=== PATIENT | male | born 1945 | race Caucasian/White ===

== ENCOUNTER 2022-11-10 07:53 | Day surgery (SDC) | payer BC ==
[2022-11-09 11:25] VITALS: BMI 43.9
[~2022-11-10 07:53] MED LIST: Fluorouracil 100 MG, Enoxaparin 25 MG, EPINEPHrine 0.3 MG in Ophthalmic Irrigation Solu... IRR SCH; Midazolam HCl 2 mg/2 ml Vial ONE; fentaNYL 50 mcg/mL 1 mL Vial ONE
[2022-11-10] MEDS ORDERED: Phenylephrine 2.5% Ophth Soln 5 ML BOT ONE (08:39)
[2022-11-10] MEDS ORDERED: Cyclopentolate 1% Opth Drop 2 ML BOT ONE (08:39)
[2022-11-10] MEDS ORDERED: Lidocaine 1% PF 5 ML VIAL ONE (09:58)
[2022-11-10] MEDS ORDERED: Triamcinolone 40 MG/ML VIAL ONE (09:58)
[2022-11-10] MEDS ORDERED: CEFAZOLIN 1 GM VIAL ONE (09:58)
[2022-11-10] MEDS ORDERED: Maxitrol 0.1% Opth Oint 3.5 GM TUBE ONE (09:58)
[2022-11-10] MEDS ORDERED: Lidocaine 4% PF 5 ML AMP ONE (09:58)
[2022-11-10] MEDS ORDERED: PROPOFOL 200 MG/20 ML VIAL ONE (09:58)
[2022-11-10] MEDS ORDERED: Bupivacaine 0.75% 10 ML VIAL ONE (09:58)
[2022-11-10] MEDS ORDERED: Sodium Chloride 0.9% 100 ML ONE (10:33)
[2022-11-10] MEDS ORDERED: CEFAZOLIN 2 GM VIAL ONE (10:33)
== END 2022-11-10 11:47 | disposition home or self-care (01) ==
LOC: SDC 07:53
PROVIDERS: ATTEND Ophthalmology Retina Specialist
PROC: 08T53ZZ Resection of Left Vitreous, Percutaneous Approach (ICD-10-PCS; principal; 2022-11-10)
PROC: 08QF3ZZ Repair Left Retina, Percutaneous Approach (ICD-10-PCS; principal; 2022-11-10)
DX: H33.012 Retinal detachment with single break, left eye (principal); Z79.4 Long term (current) use of insulin; Z79.82 Long term (current) use of aspirin; Z79.84 Long term (current) use of oral hypoglycemic drugs; Z79.890 Hormone replacement therapy; Z79.899 Other long term (current) drug therapy; Z88.8 Allergy status to other drugs, medicaments and biological substances; Z98.49 Cataract extraction status, unspecified eye; Z96.1 Presence of intraocular lens
CPT/HCPCS: 36416; 67025; J0171; J0690; J1650; J2250; J2704; J3010; J3301; J3490; J9190